=== PATIENT | female | born 1980 | race Caucasian/White ===

== ENCOUNTER 2019-08-09 18:39 | Emergency (ER) | payer BC ==
[~2019-08-09] VITALS: Ht 157.5 cm; Wt 65.3 kg
[2019-08-09 18:53] VITALS: BP_SYST 129
--- NOTE | 2019-08-09 19:01 | NUR ---
Patient to ER bed 8 to gown for evaluation. Side rails up. Report given to Ruthie WOLF.
--- NOTE | 2019-08-09 19:02 | NUR ---
Pt brought by self, A&Ox4, pt presents to ER with dysuria x 18 days failed cipro 7 days course, now on cipro again, pt c/o L lower abdominal pain, afebrile, denies bleeding, skin pink and warm, cap refill <3.
--- NOTE | 2019-08-09 19:39 | NUR ---
ER at bedside examining patient.
[2019-08-09 20:01] LABS: BASOPHILS # (AUTO) 0.1 K/uL (0.0-0.2); BASOPHILS % (AUTO) 0.7 % (0.0-2.0); EOSINOPHILS # (AUTO) 0.1 K/uL (0.0-0.4); HEMATOCRIT 37.3 % (36-48); HEMOGLOBIN 12.9 g/dL (12.0-16.0); LYMPHOCYTES # (AUTO) 2.2 K/uL (1.0-5.5); LYMPHOCYTES % (AUTO) 27.3 % (20.5-51.5); MEAN CORPUSCULAR HEMOGLOBIN 32 pg (27-31); MEAN CORPUSCULAR HGB CONC 35 % (32-36); MEAN CORPUSCULAR VOLUME 93 fL (79.0-98.0); MONOCYTES # (AUTO) 0.7 K/uL (0.0-1.0); MONOCYTES % (AUTO) 8.2 % (1.7-9.3); NEUTROPHILS % (AUTO) 62.8 % (40.0-70.0); PLATELET COUNT (AUTO) 273 K/uL (130-430); RED BLOOD CELL COUNT(AUTO) 4.03 MIL/uL (4.2-6.2)
--- NOTE | 2019-08-09 20:10 | NUR ---
Pt on stable condition, denies bleeding.
[2019-08-09 20:11] LABS: CALCIUM 8.5 mg/dL (8.4-11.0); CREATININE 0.8 mg/dL (0.55-1.30); POTASSIUM 3.7 mmol/L (3.5-5.1)
[2019-08-09 20:17] LABS: ALBUMIN 3.9 g/dL (3.4-4.8); TOTAL BILIRUBIN 0.5 mg/dL (0.0-1.0)
--- NOTE | 2019-08-09 21:13 | NUR ---
Pelvic exam performed by Dr Gay with myself at bedside for entire examination. Patient tolerated procedure . Patient assisted to position of comfort after examination.
[2019-08-09 21:14] LABS: BILIRUBIN,URINE NEGATIVE (NEGATIVE); CLARITY/URINE CLEAR (CLEAR); COLOR,URINE YELLOW (YELLOW); GLUCOSE,URINE NEGATIVE (NEGATIVE); KETONES,URINE NEGATIVE (NEGATIVE); LEUKOCYTE ESTERASE ,URINE TRACE (NEGATIVE); NITRITE, URINE NEGATIVE (NEGATIVE); PROTEIN URINE NEGATIVE (NEGATIVE); UROBILINOGEN,URINE 0.2 (0.2-1.0)
[2019-08-09 21:37] LABS: BLOOD, URINE TRACE (NEGATIVE)
[2019-08-09 21:44] LABS: BACTERIA,URINE FEW /HPF (None Seen); RBC,URINE 0-3 /HPF (0-3)
[2019-08-09 21:45] LABS: MUCUS,URINE None Seen /LPF (None Seen)
[2019-08-09 21:54] VITALS: BP_SYST 119
--- NOTE | 2019-08-09 21:55 | NUR ---
Patient given written and verbal discharge instructions and verbalizes understanding. ER MD discussed with patient the results and treatment provided. Patient in stable condition. ID arm band removed. Rx of Motrin given. Patient educated on pain management and to follow up with PMD. Pain Scale 0. Opportunity for questions provided and answered. Medication side effect fact sheet provided.
[2019-08-11 21:06] LABS: CHLAMYDIA TRACHOMATIS NAA Negative (Negative); NEISSERIA GONORRHOEAE NAA Negative (Negative)
== END 2019-08-09 21:55 | disposition home or self-care (01) ==
LOC: SED 18:39
DX: N83.292 Other ovarian cyst, left side (principal); Z88.0 Allergy status to penicillin
CPT/HCPCS: 36415; 76830-TC; 76856-TC; 76857; 80053; 81000-TC; 81025; 85025; 87086; 87210-TC; 87491; 87591; 99284

== ENCOUNTER 2020-08-23 22:39 | Emergency (ER) | payer BC ==
[~2020-08-23] VITALS: Ht 154.9 cm; Wt 63.5 kg
[2020-08-23 22:44] VITALS: BP_SYST 127
[2020-08-24 00:45] VITALS: BP_SYST 126
== END 2020-08-24 00:45 | disposition home or self-care (01) ==
LOC: SED 22:39
DX: S93.402A Sprain of unspecified ligament of left ankle, initial encounter (principal); Z88.0 Allergy status to penicillin; W01.0XXA Fall on same level from slipping, tripping and stumbling without subsequent striking against object, initial encounter; Y93.89 Activity, other specified; Y92.89 Other specified places as the place of occurrence of the external cause; Y99.8 Other external cause status
CPT/HCPCS: 99283

== ENCOUNTER 2021-06-20 09:28 | Emergency (ER) | payer BC, SELFPAY ==
[~2021-06-20] VITALS: Ht 154.9 cm; Wt 65.3 kg
[2021-06-20 09:28] VITALS: BP_SYST 105
[2021-06-20] MEDS ORDERED: NACL 0.9% 1,000 ML IV ONE (10:45)
[2021-06-20] MEDS ORDERED: ONDANSETRON HCL 4 MG/2 ML VIAL IVP ONE (10:45)
[2021-06-20 11:13] LABS: ALBUMIN 3.5 g/dL (3.4-4.8); CALCIUM 8.6 mg/dL (8.4-11.0); CREATININE 0.79 mg/dL (0.55-1.30); POTASSIUM 4.2 mmol/L (3.5-5.1); TOTAL BILIRUBIN 0.8 mg/dL (0.0-1.0)
[2021-06-20 11:15] LABS: BASOPHILS % (AUTO) 0.4 % (0.0-2.0); EOSINOPHILS % (AUTO) 0.1 % (0.0-4.0); HEMATOCRIT 38.4 % (36-48); HEMOGLOBIN 13.4 g/dL (12.0-16.0); LYMPHOCYTES # (AUTO) 0.5 K/uL (1.0-5.5); LYMPHOCYTES % (AUTO) 7.9 % (20.5-51.5); MEAN CORPUSCULAR HEMOGLOBIN 32 pg (27-31); MEAN CORPUSCULAR HGB CONC 35 % (32-36); MEAN CORPUSCULAR VOLUME 90 fL (79.0-98.0); MONOCYTES # (AUTO) 0.6 K/uL (0.0-1.0); MONOCYTES % (AUTO) 9.2 % (1.7-9.3); NEUTROPHILS # (AUTO) 5.4 K/uL (1.8-7.7); NEUTROPHILS % (AUTO) 82.4 % (40.0-70.0); PLATELET COUNT (AUTO) 269 K/uL (130-430); RED BLOOD CELL COUNT(AUTO) 4.25 MIL/uL (4.2-6.2); RED CELL DISTRIBUTION WIDTH 11.8 % (9.0-15.0); WHITE BLOOD COUNT (AUTO) 6.5 K/uL (4.8-10.8)
[2021-06-20] MEDS ORDERED: ONDA-8 TL (12:40)
[2021-06-20 13:24] VITALS: BP_SYST 105
== END 2021-06-20 13:20 | disposition home or self-care (01) ==
LOC: SED 09:28
DX: R50.9 Fever, unspecified (principal); R11.0 Nausea; Z88.0 Allergy status to penicillin; Z20.822 Contact with and (suspected) exposure to COVID-19
CPT/HCPCS: 36415; 80053; 83605; 85025; 87040; 87426; 96361; 96374; 99283; J2405; J7030

== ENCOUNTER 2024-06-09 10:04 | Emergency (ER) | payer BC ==
[~2024-06-09] VITALS: Ht 157.5 cm; Wt 65.8 kg
[~2024-06-09 10:04] MED LIST: ONDA-8 TL
[2024-06-09 10:05] VITALS: BP_SYST 112; PULSE 87; RESP 18; TEMP 98.2; O2SAT 98
[2024-06-09 11:35] VITALS: BP_SYST 113; PULSE 84; RESP 16; TEMP 98.2; O2SAT 99
== END 2024-06-09 11:36 | disposition home or self-care (01) ==
LOC: SED 10:04
DX: M77.12 Lateral epicondylitis, left elbow (principal); Z88.0 Allergy status to penicillin; Z79.899 Other long term (current) drug therapy
CPT/HCPCS: 99283